=== PATIENT | female | born 1985 | race Hispanic/Latino ===

== ENCOUNTER 2022-06-24 07:27 | Outpatient (CLI) | payer OTHER | END 2022-06-24 07:28 | disposition home or self-care (01) | LOC: ULT 07:27 | PROVIDERS: ATTEND Student in an Organized Health Care Education/Training Program | DX: R94.5 Abnormal results of liver function studies (principal); K76.0 Fatty (change of) liver, not elsewhere classified | CPT/HCPCS: 76705 ==